=== PATIENT | female | born 1970 | race Asian ===

== ENCOUNTER → 2024-06-10 06:48 | Outpatient (REF) | payer OTHER, SELFPAY | LOC: PAVMRI 06:48 | PROVIDERS: ATTENDING PHYSICIAN Specialist; FAMILY PHYSICIAN Nurse Practitioner Family | DX: M25.561 Pain in right knee (principal) | CPT/HCPCS: 73721 ==

== ENCOUNTER → 2024-08-23 06:23 | Day surgery (SDC) | payer OTHER, SELFPAY | LOC: GI 06:23 | PROVIDERS: ATTENDING PHYSICIAN Internal Medicine | DX: Z12.11 Encounter for screening for malignant neoplasm of colon (principal); D12.2 Benign neoplasm of ascending colon; D12.4 Benign neoplasm of descending colon; K57.30 Diverticulosis of large intestine without perforation or abscess without bleeding; Z85.038 Personal history of other malignant neoplasm of large intestine | CPT/HCPCS: 45385; 45380; 88305 ==

== ENCOUNTER 2025-04-06 17:53 | Emergency (ER) | payer OTHER, SELFPAY ==
[2025-04-06 17:54] VITALS: BP 117/83
--- NOTE | 2025-04-06 18:58 | ED.GENMED ---
History of Present Illness
General
Chief Complaint: Rectal Bleeding
Source: patient
Exam Limitations: none
Time Seen by Provider: 04/06/25 18:34
History of Present Illness
History of Present Illness:
54yoF with a history of colon cancer 2 years ago s/p resection in remission presenting for evaluation of rectal bleeding. Bleeding has been ongoing for about 3-4 weeks. The bleeding initially only occurred with bowel movements but she has passed
blood mixed with mucous without stool over the past few days. She also reports some discomfort in her low back. She has some soreness in her abdomen but denies any overt pain. Patient has also been feeling fatigued. She denies any dizziness,
syncope, chest pain, shortness of breath. She was seen by her PCP today and was sent to the ED for evaluation. Last colonoscopy in July 2024 showed polyps and a few diverticula. She does not take any blood thinners.
Phy Exam
General Physical Exam
General Presentation: well appearing and no apparent distress
General Skin: warm and dry
General Habitus: normal
General Mental: alert
ENT Exam
ENT Exam: normocephalic
Cardiovascular Exam
Cardiovascular Exam: regular rate/rhythm
Pulmonary Exam
Pulmonary Exam: lungs clear, no respiratory distress, no rales, no crackles, no rhonchi and no wheezing
Gastrointestinal Exam
Gastrointestinal Exam: soft, non distended and other (Mild tenderness in lower abdomen. Abdomen soft, non-distended. No rebound or guarding.)
Stool: other (Small amount of pink tinged mucous obtained on MAYA)
Neurological Exam
Neurological Exam: alert
[place] Coma Scale
Eye Opening: Spontaneous
Verbal Response: Oriented
Motor Response: Obeys Commands
GCS Total Score: 15
Skin Exam
Skin Exam: normal color and warm/dry
Psychiatric Exam
Psychiatric Exam: normal mood/affect
Course
Orders/Labs/Results
Orders:
Orders
04/06/25 18:54
Iohexol [Omnipaque] See Protocol PO NOW STA
04/06/25 18:55
CT Abd/pel W Iv And Oral Contr Urgent
Comment:
Reason For Exam: rectal bleeding, abd soreness, low back pain
04/06/25 19:00
Complete Blood Count/With Diff Urgent
Comprehensive Metabolic Panel Urgent
Lipase Urgent
PT/INR [Prothrombin Time] Urgent
PTT Urgent
Abnormal Lab Results
04/06/25
19:00
Chloride 109 H mmol/L
(98-107)
BUN 22 H mg/dl
(7-17)
Glucose 105 H mg/dl
(70-99)
04/06/25 19:00
04/06/25 19:00
Vital Signs
Initial and Last Documented VS:
Initial Vital Signs
Temp Pulse Resp BP Pulse Ox
98.6 F 87 16 117/83 97
04/06/25 17:54 04/06/25 17:54 04/06/25 17:54 04/06/25 17:54 04/06/25 17:54
Last Documented Vital Signs
Temp Pulse Resp BP Pulse Ox
98.6 F 80 17 146/90 96
04/06/25 17:54 04/06/25 22:14 04/06/25 22:14 04/06/25 22:14 04/06/25 22:14
MDM/Problems Addressed
Differential Diagnosis Includes:
54yoF here with rectal bleeding x 3-4 weeks. Also c/o low back discomfort. Hx of colon cancer in remission. No blood thinners. She is well-appearing no acute distress. Vital signs stable. There is a small amount of pink-tinged mucus obtained on
digital rectal exam. Differential diagnosis includes but is not limited to: Diverticular bleeding, colitis, hemorrhoidal bleeding, malignancy, AVM, anemia
Initial ED plan: Check abdominal labs, coags, and CT abdomen.
*Pulse Oximetry
Patient hypoxic: no (96%)
*Critical Care Note
Total Time (30-74mins, 75-104mins- exclusive of procedures): Not Applicable
Update Note
Update Note:
Hemoglobin is normal at 13.4. Remainder of labs unremarkable. CT shows no significant abnormality other than moderate constipation. Patient feeling well on reassessment. No indication for hospitalization as symptoms have been ongoing for several
weeks and she is not anemic. Patient also requesting to be discharged. 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 Strict ED return precautions reviewed. Patient in agreement with plan and she was discharged in stable condition.
ED Attending Note
-
Portions of this chart may have been created with voice recognition software.� Occasional wrong word or��sound alike� substitutions may have occurred due to the inherent limitations of voice recognition software.
Discharge Plan
Departure
Patient Disposition: Home (Routine Discharge)
Date of Disposition: 04/06/25
Time of Disposition: 21:59
Patient with high blood pressure during this ER visit?: No
Discharge Problem:
Rectal bleeding
Instructions: Bloody Stools, Adult (DC)
Prescriptions:
No Action
dexmethylphenidate [Focalin XR] 15 mg Capsule,Er Biphasic 50-50
15 mg PO DAILY
Control Pill
1 tab PO DAILY
fluticasone propionate 50 mcg/actuation [place],Suspension
1 spray INTRANASAL DAILY
acetaminophen 325 mg Tablet
650 mg PO Q4HPRN PRN (Reason: Pain) Qty: 0 0RF
oxycodone 5 mg capsule
5 mg PO Q6H PRN (Reason: Pain) Qty: 20 0RF
Referrals:
Cheryl Nguyen CRNP [Family Provider, Internal Medicine]
Activity Restrictions/Additional Instructions:
Please call your [facility] plasma [facility] tomorrow for follow-up. Return to the ER with any worsening symptoms including dizziness, passing out, or trouble breathing.
Interventions
Interventions:
*Risk Screen - Suicide Last Done: 04/06/25 19:03
*General Assessment Last Done: 04/06/25 17:54
*Neglect/Abuse Screening Last Done: 04/06/25 19:03
*ED- Fall Risk Assessment Last Done: 04/06/25 19:02
*ED COVID-19 Vaccine History Last Done: 04/06/25 19:02
*Nursing Disposition Last Done: 04/06/25 22:17
[facility] Assessment Last Done: 04/06/25 19:00
ED- Cardiac Assessment Last Done: 04/06/25 19:00
ED- Pulmonary Assessment Last Done: 04/06/25 19:00
Discharge Date and Time
Discharge Date/Time: 04/06/25 22:18
Print Language: [id number]
[2025-04-06 19:01] VITALS: BMI 28.4
[2025-04-06 19:03] VITALS: BP 107/65
[2025-04-06] MEDS: OMNIPAQUE 50 ML PO (19:10)
[2025-04-06 19:12] LABS: % Basophils 0.5 % (0-2); % Eosinophils 2.6 % (0-6); % Immature Granulocytes 0.4 % (0-0.5); % Lymphocytes 30.4 % (20.5-51.1); % Monocytes 6.9 % (1.7-9.3); % Neutrophils 59.2 % (42.2-75.2); Absolute Basophils 0.1 10^3/uL (0-0.2); Absolute Eosinophils 0.2 10^3/uL (0-0.7); Absolute Lymphocytes 2.8 10^3/uL (1.2-3.4); Absolute Monocytes 0.6 10^3/uL (0.1-0.6); Absolute Neutrophils 5.5 10^3/uL (1.4-6.5); Hematocrit 39.3 % (37.0-47.0); Hemoglobin 13.4 g/dL (12.0-16.0); Mean Corp Hgb Conc. 34.1 g/dL (33.0-37.0); Mean Corpuscular Hgb 29.8 pg (27.0-31.0); Mean Corpuscular Volume 87.3 fL (81.0-99.0); Mean Platelet Volume 8.2 fL (7.4-10.4); Nucleated Red Blood Cells % 0 %; Platelet Count 332 10^3/uL (130-400); Red Cell Dist. Width 11.9 % (11.5-14.5); White Blood Cell Count 9.3 10^3/uL (4.8-10.8)
[2025-04-06 19:17] LABS: INR 0.85; PT 12.2 Sec (11.4-14.6)
[2025-04-06 19:18] LABS: APTT 28.1 Sec (23.4-35.0)
[2025-04-06 19:35] LABS: ALT (SGPT) 22 U/L (0-35); AST (SGOT) 23 U/L (14-36); Albumin 4.2 g/dl (3.5-5.0); Alkaline Phosphatase 55 U/L (38-126); Blood Urea Nitrogen 22 mg/dl (7-17); Calcium 9.6 mg/dl (8.4-10.2); Carbon Dioxide 26 mmol/L (22-30); Chloride 109 mmol/L (98-107); Estimated Creatinine Clearance 68 ml/min; Glucose 105 mg/dl (70-99); Lipase 126 U/L (23-300); Potassium 4.1 mmol/L (3.5-5.1); Sodium 143 mmol/L (135-145); Total Bilirubin 0.6 mg/dl (0.2-1.3); Total Protein 6.9 g/dl (6.3-8.2); eGFR > 60.00
[2025-04-06 20:58] VITALS: BP 124/80
[2025-04-06 22:14] VITALS: BP 146/90
== END 2025-04-06 22:18 | disposition home or self-care (01) ==
LOC: EMR 17:53
PROVIDERS: Student in an Organized Health Care Education/Training Program; EMERGENCY PHYSICIAN Emergency Medicine; FAMILY PHYSICIAN Nurse Practitioner Family
DX: K62.5 Hemorrhage of anus and rectum (principal); K59.00 Constipation, unspecified; Z85.038 Personal history of other malignant neoplasm of large intestine; Z90.49 Acquired absence of other specified parts of digestive tract
CPT/HCPCS: 99284; 74177; 80053; 83690; 85025; 85610; 85730; Q9967

== ENCOUNTER 2025-04-24 06:21 | Day surgery (SDC) | payer OTHER, SELFPAY | END 2025-04-24 12:41 | disposition home or self-care (01) | LOC: GI 06:21 | PROVIDERS: ATTENDING PHYSICIAN Internal Medicine | DX: K92.1 Melena (principal); K57.30 Diverticulosis of large intestine without perforation or abscess without bleeding; K63.89 Other specified diseases of intestine; K62.89 Other specified diseases of anus and rectum; K31.7 Polyp of stomach and duodenum; K29.70 Gastritis, unspecified, without bleeding; K52.9 Noninfective gastroenteritis and colitis, unspecified; K29.50 Unspecified chronic gastritis without bleeding | CPT/HCPCS: 45380; 43239; 88305; 88342 ==

== ENCOUNTER → 2025-06-30 06:47 | Outpatient (REF) | payer OTHER, SELFPAY | LOC: HWRAD 06:47 | PROVIDERS: ATTENDING PHYSICIAN Family Medicine | DX: M25.512 Pain in left shoulder (principal) | CPT/HCPCS: 73030 ==

== ENCOUNTER 2025-08-28 06:15 | Day surgery (SDC) | payer OTHER, SELFPAY | END 2025-08-28 08:33 | disposition home or self-care (01) | LOC: GI 06:15 | PROVIDERS: ATTENDING PHYSICIAN Internal Medicine | DX: K51.90 Ulcerative colitis, unspecified, without complications (principal) | CPT/HCPCS: 45331; 88305 ==

== ENCOUNTER → 2025-09-05 07:02 | Outpatient (REF) | payer OTHER, SELFPAY | LOC: MRI 3T 07:02 | PROVIDERS: ATTENDING PHYSICIAN Family Medicine | DX: M25.519 Pain in unspecified shoulder (principal) | CPT/HCPCS: 73221 ==